=== PATIENT | female | born 1965 | race Caucasian/White ===

== ENCOUNTER 2016-08-29 16:10 | Emergency (ER) | payer MEDICARE, OTHER ==
[2016-08-29] MEDS ORDERED: NS 0.9% 1000 ML* 1,000 ML IV ONE (18:30)
[2016-08-29] MEDS ORDERED: Acetaminophen TAB* 325 MG PO ONE (18:32)
[2016-08-29 19:25] LABS: Albumin 3.9 g/dL (3.2-5.2); BUN/Creatinine Ratio 13.2 (8-20); EGFR African American 155.2 (>60); EGFR Non-African American 120.7 (>60); Globulin 3.1 g/dL (2-4); Potassium 3.6 mmol/L (3.5-5.0); Total Bilirubin 0.5 mg/dL (0.2-1.0)
[2016-08-29 19:27] LABS: Mono Internal Control QC Line Present
[2016-08-29 19:28] LABS: Manual Entry Verification CAR0052
--- NOTE | 2016-08-29 20:27 | ED ---
Throat Pain/Nasal Congestion - HPI Summary HPI Summary: Pt here w/ ST x 1 week. Dysphagia today which lead to her not drinking much water today and hasn't had much to eat either. She is able to breath w/o difficulty but reports a chronic cough d/t possible asthma. Has been using Flovent along with her albuterol. Rinses mouth after each use. H/o strep, no known h/o mono. Works on a school bus. Not sure if imms are UTD. Also admits to poor compliance w/ diabetic medications - takes metformin and glimeperide but has not been using victoza as she was dx'd w/ pancreatitis a few months back and fears this triggered it. She knows her diabetes is best controlled w/ proper diet (lost 40 lbs in 4 months w/ the "Wheat Belly Diet" but "fell off the wagon" when he puppy got sick). Feels run down in general. Denies rinorrhea , otalgia, sneezing, sinus pain/pressure, rash, ab pain, N/V/D, neck pain. - History of Current Complaint Chief Complaint: EDThroatPain Time Seen by Provider: 08/29/16 17:41 Hx Obtained From: Patient - Allergies/Home Medications Allergies/Adverse Reactions: Allergies Allergy/AdvReac Type Severity Reaction Status Date / Time No Known Allergies Allergy Verified 08/29/16 16:11 PMH/Surg Hx/FS Hx/Imm Hx Previously Healthy: Yes Endocrine/Hematology History: Reports: Hx Diabetes - oral medications Respiratory History: Reports: Hx Asthma - ? Infectious Disease History: No Infectious Disease History: Denies: Traveled Outside the [place] in Last 30 Days - Social History Lives: With Family Alcohol Use: None Hx Substance Use: No Substance Use Type: Reports: None Hx Tobacco Use: No Smoking Status (MU): Never Smoked Tobacco Review of Systems Positive: Fever - low grade Eyes: Negative Negative: Photophobia, Blurred Vision, Diplopia, Drainage, Erythema Positive: Sore Throat - see HPi. Negative: Dental Pain, Ear Ache, Nasal Discharge Cardiovascular: Other - tachycardic - she reports this happens when she eats poorly - has trend from records over the years - PCP is not concerned Negative: Palpitations, Chest Pain Gastrointestinal: Negative Positive: no symptoms reported Musculoskeletal: Negative Skin: Negative Neurological: Negative Psychological: Normal All Other Systems Reviewed And Are Negative: Yes Physical Exam Triage Information Reviewed: Yes Vital Signs On Initial Exam: Initial Vitals Temp Pulse Resp BP Pulse Ox 99.2 F 111 18 167/90 97 08/29/16 16:11 08/29/16 16:11 08/29/16 16:11 08/29/16 16:11 08/29/16 16:11 Vital Signs Reviewed: Yes Appearance: Positive: No Pain Distress, Obese - Appears mildly fatigued Skin: Positive: Warm, Dry - no rash Head/Face: Positive: Normal Head/Face Inspection - sinuses NTTP Eyes: Positive: Normal, EOMI. Negative: Conjunctiva Inflammed, Discharge ENT: Positive: Hearing grossly normal, Pharyngeal erythema - mild erytema over uvula and soft palate w/ satellite spots - no buck white spots/coating, TMs normal. Negative: Nasal congestion, Nasal drainage, Tonsillar swelling, Tonsillar exudate Neck: Positive: Supple, Nontender, No Lymphadenopathy Respiratory/Lung Sounds: Positive: Clear to Auscultation, Breath Sounds Present. Negative: Rales, Rhonchi, Stridor, Wheezes Cardiovascular: Positive: Tachycardia - mild, S1, S2. Negative: Leg Edema Left , Leg Edema Right Abdomen Description: Positive: Nontender, No Organomegaly, Soft Bowel Sounds: Positive: Present Musculoskeletal: Positive: Normal, Strength/ROM Intact Neurological: Positive: Normal, Sensory/Motor Intact, Alert, Oriented to Person Place, Time, CN Intact II-III Psychiatric: Positive: Normal - Jared Coma Scale Coma Scale Total: 15 Diagnostics - Vital Signs Vital Signs Temp Pulse Resp BP Pulse Ox 08/29/16 19:02 97.9 F 110 19 157/85 97 08/29/16 16:11 99.2 F 111 18 167/90 97 - Laboratory Lab Results: Lab Results 08/29/16 08/29/16 08/29/16 Range/Units 17:19 18:55 18:55 Sodium 134 (133-145) mmol/L Potassium 3.6 (3.5-5.0) mmol/L Chloride 101 (101-111) mmol/L Carbon Dioxide 24 (22-32) mmol/L Anion Gap 9 (2-11) mmol/L BUN 7 (6-24) mg/dL Creatinine 0.53 (0.51-0.95) mg/dL Est GFR ( Amer) 155.2 (>60) Est GFR (Non-Af Amer) 120.7 (>60) BUN/Creatinine Ratio 13.2 (8-20) Glucose 163 H (70-100) mg/dL Calcium 9.0 (8.6-10.3) mg/dL Total Bilirubin 0.50 (0.2-1.0) mg/dL AST 15 (13-39) U/L ALT 16 (7-52) U/L Alkaline Phosphatase 79 (34-104) U/L Total Protein 7.0 (6.4-8.9) g/dL Albumin 3.9 (3.2-5.2) g/dL Globulin 3.1 (2-4) g/dL Albumin/Globulin Ratio 1.3 (1-3) Monoscreen Negative (Negative) Group A Strep Rapid Negative (Negative) Result Diagrams: 08/29/16 18:55 Lab Statement: Any lab studies that have been ordered have been reviewed, and results considered in the medical decision making process. Re-Evaluation - Re-Evaluation First Eval Change: Improved - throat pain improved s/p acetaminophen EENT Course/Dx - Course Course Of Treatment: Discussion w/ pt about controlling diabetes w/ lifetsyle - she plans to return to "Wheat Belly Diet" and discuss w/ endocrinology as well as asthma w/ PCP re: flovent. Reviewed danger s/sx of when to return to ED. Pt agrees w/ plan. - Diagnoses Provider Diagnoses: Thrush, oral Discharge - Discharge Plan Condition: Stable Disposition: HOME Prescriptions: Clotrimazole HAMZAH* [Mycelex Hamzah*] 10 mg PO SEE INSTRUCTIONS #70 hamzah Patient Education Materials: Oral Candidiasis (ED) Referrals: No Primary Care Phys,NOPCP [Primary Care Provider] - Additional Instructions: Follow-up with aligning inspector Wednesday to recheck throat and discuss adjusting diabetic medications. You also voice committment to lifestyle changes to address diabetes which is a great idea! Also, follow-up with PCP regarding your asthma diagnosis as Flovent may have triggered this infection. *If you develop fever, chills, trouble swallowing or breathing, return to ED
[2016-08-29 21:19] VITALS: BP 153/78
== END 2016-08-29 21:19 | disposition home or self-care (01) ==
LOC: ED 16:10
DX: B37.0 Candidal stomatitis (principal); R13.10 Dysphagia, unspecified; H53.149 Visual discomfort, unspecified; H53.8 Other visual disturbances; H53.2 Diplopia
CPT/HCPCS: 36415; 80053; 86308; 87651; 99282; A9270-GY

== ENCOUNTER 2016-12-31 09:58 | Inpatient (IN) | payer MEDICARE ==
[2016-12-31] MEDS ORDERED: methylPREDNISolone 125 MG* 2 ML VIAL IV ONE (10:14)
[2016-12-31] MEDS ORDERED: NS 0.9% 1000 ML* 1,000 ML IV ONE (10:14)
[2016-12-31 10:46] LABS: Hematocrit 38 % (35-47); Hemoglobin 12.8 g/dl (12.0-16.0); Mean Corpuscular HGB Conc 33 g/dl (31-36); Mean Corpuscular Hemoglobin 27 pg (27-31); Mean Corpuscular Volume 81 fL (80-97); Mean Platelet Volume 8 um3 (7.4-10.4); Red Blood Count 4.74 10^6/ul (4.0-5.4); Red Cell Distribution Width 15 % (10.5-15); White Blood Count 13.1 10^3/ul (3.5-10.8)
--- NOTE | 2016-12-31 10:58 | RAD ---
Indication: Shortness of breath. 2 views of the chest demonstrate no mediastinal shift. Heart is of normal size and configuration. Lung parker are clear. No pleural fluid, pneumonia or pneumothorax is noted. IMPRESSION: No active cardiopulmonary disease is noted.
[2016-12-31 11:01] LABS: BUN/Creatinine Ratio 21.7 (8-20); C Reactive Protein 18.52 mg/L (< 5.00); EGFR African American 114.5 (>60); Globulin 3.2 g/dL (2-4); Potassium 3.7 mmol/L (3.5-5.0); Total Bilirubin 0.4 mg/dL (0.2-1.0); Total Protein 7.2 g/dL (6.4-8.9)
[2016-12-31] MEDS: Albuterol/Ipratropium NEB.SOL* Albuterol 2.5 MG/Ipratropium 0.5 MG 3 ML INH SCH ×4 (11:02→19:56)
[2016-12-31 11:15] LABS: PCO2 Arterial 37 mmHg (35-45)
[2016-12-31] MEDS ORDERED: Albuterol/Ipratropium NEB.SOL* Albuterol 2.5 MG/Ipratropium 0.5 MG 3 ML INH ONE (12:45)
[2016-12-31] MEDS ORDERED: Omeprazole CAP* 20 MG PO ONE (14:08)
[2016-12-31] MEDS ORDERED: Dextrose 50% Syringe 50 ML* 25 GM/50 ML SYRINGE IV PUSH PRN (14:46)
[2016-12-31] MEDS ORDERED: Temazepam CAP* 15 MG PO PRN (14:47)
[2016-12-31] MEDS ORDERED: Acetaminophen TAB* 325 MG PO PRN (14:47)
[2016-12-31] MEDS ORDERED: Insulin GLARGINE(*) 1 UNITS UNIT SUBCUT SCH (15:00)
--- NOTE | 2016-12-31 17:39 | HP ---
CC: Betty Kasper MD * HISTORY AND PHYSICAL: DATE OF ADMISSION: 12/31/16 PRIMARY CARE PROVIDER: Betty Kasper MD CHIEF COMPLAINT: Shortness of breath and wheezing. HISTORY OF PRESENT ILLNESS: Marbella Mckenzie is a 51-year-old female with a history of, she stated possibly COPD versus asthma, who presented to the hospital complaining of shortness of breath and wheezing. The patient stated that for the past 3 weeks ever since she cleaned her house and removed a lot of dust, she started having problems with cough, sputum production, and wheezing. Initially, she was placed on levofloxacin and Solu-Medrol taper and the symptoms resolved after 10 days of treatment and then they recurred 5 days later. For the past 4 days, she had been prednisone at 30 mg daily and doxycycline 100 mg daily. She presented to the hospital hypoxemic with oxygen saturation of 88% on room air. She is going to be admitted to the hospital with the diagnoses of hypoxemia and COPD exacerbation. PAST MEDICAL HISTORY: 1. History of hypertension. 2. Diabetes. 3. History of asthma and allergies. 4. History of depression. 5. History of . 6. History of benign cyst in the ankle, removed. 7. Carpal tunnel release. 8. Tonsillectomy. 9. Possible COPD. MEDICATIONS: Current medications include: 1. Prednisone 30 mg daily. 2. Doxycycline 100 mg daily. 3. Metformin 1000 mg b.i.d. 4. Glimepiride 4 mg b.i.d. 5. Lisinopril 10 mg daily. 6. Duloxetine 60 mg daily. ALLERGIES: No known drug allergies. FAMILY HISTORY: Positive for mother who with history of COPD, but of "old age." Father's reason of is unknown. SOCIAL HISTORY: The patient denies any alcohol use. She stated that she smoked 10- pack years and she quit over 10 years ago. She denies any drug use. She is in disability due to depression and drives school bus part-time. She lives with her disabled daughter and she is unable to name a surrogate at this point. REVIEW OF SYSTEMS: Please see history of present illness. On the patient's evaluation, the patient stated that her sputum is slightly improved on levofloxacin treatment and now is more purulent again. All the remaining 14 systems were reviewed with the patient and are otherwise negative. PHYSICAL EXAMINATION GENERAL: The patient is a pleasant 51-year-old obese female who is in no acute distress. Alert, awake, oriented x3. VITAL SIGNS: Blood pressure 128/78, heart rate of 106 and regular, respiratory rate 25, oxygen saturation 98% on 2 L of oxygen nasal cannula, and temperature 97.6. HEENT: Head: Atraumatic, normocephalic. Eyes: Pupils are equal, reactive to light and accommodation. Oropharynx clear. Mucosa moist. NECK: Supple. No JVD. No bruits bilaterally. RESPIRATORY: Diffuse wheezes with prolonged expiratory phase in anterior bilateral lungs. CARDIOVASCULAR: Regular rate and rhythm, tachycardia, no murmur. ABDOMEN: Soft, nontender. Bowel sounds present in all 4 quadrants. EXTREMITIES: There is no edema. Pulses are +2 bilaterally. No clubbing or cyanosis. NEUROLOGIC: Speech clear. Cranial nerves II through XII grossly intact. Motor strength is 5/5 bilaterally. DIAGNOSTIC STUDIES/LAB DATA: Laboratory data showed sodium of 130, potassium 3.7, chloride 97, carbon dioxide 24, BUN 15, creatinine 0.69. Liver functions were unremarkable. C-reactive protein of 18. Lactic acid is 3.4. Brain natriuretic peptide was 24. CBC, white blood cell count of 13.1, hemoglobin 12.8, hematocrit of 38, and platelets of 302. Influenza A and B negative. ABG shows pH of 7.42, pCO2 of 37, pO2 of 68, bicarb of 24. Portable chest x-ray, impression "no active cardiopulmonary disease." ASSESSMENT AND PLAN: 1. The patient is in chronic obstructive pulmonary disease/asthma exacerbation. I believe she was never formally diagnosed with COPD. She is going to be placed on Solu-Medrol intravenously and continued on doxycycline. We will order sputum cultures to guide further treatment. The patient is also going to be placed on DuoNeb on a scheduled basis. 2. In regards to the patient's diabetes, the patient is going to be placed on insulin sliding scale and her oral hypoglycemics are going to be held for the time being. 3. For hypertension, lisinopril is going to be continued. 4. For depression, the patient's Cymbalta is going to be continued. 5. Due to the patient's sugars being over 300 on presentation, the patient is going to be placed on insulin Lantus. 6. The patient's hyponatremia and lactic acid are most likely due to mild dehydration. Lactic acid elevation probably also added to the patient's hypoxia. I do not believe the patient at this point will require another blood stick to have the lactic acid result. Nevertheless, we will confirm with lactic acid level in the morning. The patient already received a liter of intravenous fluids in the emergency department and more fluids will not be instituted for the time being. 7. For DVT prophylaxis, the patient is going to be fully ambulatory and is at low risk. 8. Code status: The patient's code status is full and she is unable to name a surrogate at this point. She basically states that she does not have anyone who she would like to entrust . TIME SPENT: Approximately 65 minutes were spent on admission of this patient, more than half of the time was spent [id number] with the patient doing the interview and physical exam. [id number]/CPS #: [id number] GARRET
[2016-12-31 18:16] LABS: Urine Bacteria Absent (Absent); Urine Bilirubin Negative (Negative); Urine Glucose 3+(>=500 mg/dL) (Negative); Urine Nitrite Negative (Negative)
[2016-12-31] MEDS ORDERED: Insulin LISPRO* 1 UNITS UNIT SUBCUT ONE ×2 (19:28→21:39)
[2016-12-31] MEDS: Insulin LISPRO* 1 UNITS UNIT SUBCUT SCH ×2 (19:30→21:51)
[2016-12-31] MEDS: methylPREDNISolone SOD 40 MG* 1 ML VIAL IV SCH (20:37)
[2016-12-31] MEDS: DOXYcycline CAP(*) 100 MG PO SCH (20:37)
[2017-01-01] MEDS: Albuterol/Ipratropium NEB.SOL* Albuterol 2.5 MG/Ipratropium 0.5 MG 3 ML INH SCH ×4 (00:57→19:20)
[2017-01-01] MEDS: methylPREDNISolone SOD 40 MG* 1 ML VIAL IV SCH ×3 (05:08→20:04)
[2017-01-01] MEDS: Insulin LISPRO* 1 UNITS UNIT SUBCUT SCH ×6 (05:11→20:41)
[2017-01-01 06:16] LABS: Hematocrit 36 % (35-47); Hemoglobin 11.7 g/dl (12.0-16.0); Mean Corpuscular HGB Conc 33 g/dl (31-36); Mean Corpuscular Hemoglobin 27 pg (27-31); Mean Corpuscular Volume 81 fL (80-97); Mean Platelet Volume 8 um3 (7.4-10.4); Red Blood Count 4.36 10^6/ul (4.0-5.4); Red Cell Distribution Width 15 % (10.5-15); White Blood Count 13.3 10^3/ul (3.5-10.8)
[2017-01-01 06:30] LABS: BUN/Creatinine Ratio 21.3 (8-20); Calcium 8.9 mg/dL (8.6-10.3); EGFR African American 131.9 (>60); EGFR Non-African American 102.6 (>60)
--- NOTE | 2017-01-01 08:15 | ED ---
Alice Torres Alfonso scribed for Christos Briceno MD on 12/31/16 at 1044 . Shortness of Breath - HPI Summary HPI Summary: This patient is a 51 year old F presenting to [facility] with a chief complaint of SOB since 3 weeks ago. The patient rates the pain 6/10 in severity. Symptoms aggravated by nothing. Symptoms alleviated by nothing. Patient reports cough. - History of Current Complaint Chief Complaint: EDShortnessOfBreath Time Seen by Provider: 12/31/16 10:08 Hx Obtained From: Patient Onset/Duration: Gradual Onset, Lasting Weeks - 3, Still Present Timing: Constant Aggrevating Factors: Nothing Alleviating Factors: Nothing Associated Signs & Symptoms: Cough (Nonproductive) - Allergy/Home Medications Allergies/Adverse Reactions: Allergies Allergy/AdvReac Type Severity Reaction Status Date / Time No Known Allergies Allergy Verified 08/29/16 16:11 Home Medications: Home Medications DOXYcycline CAP(*) [DOXYcycline 100MG CAP(*)] 100 mg PO DAILY 12/31/16 [History Confirmed 12/31/16] DULoxetine DR CAP* [Cymbalta CAP*] 60 mg PO DAILY 12/31/16 [History Confirmed ] Glimepiride (NF) 4 mg PO BID 12/31/16 [History Confirmed 12/31/16] Lisinopril TAB* [Prinivil TAB*] 10 mg PO DAILY 12/31/16 [History Confirmed 12/31] metFORMIN* [Glucophage 500 MG TAB *] 1,000 mg PO BID 12/31/16 [History Confirmed 12/31/16] predniSONE TAB* [Deltasone TAB*] 20 mg PO DAILY 12/31/16 [History Confirmed 03/07] PMH/Surg Hx/FS Hx/Imm Hx Endocrine/Hematology History: Reports: Hx Diabetes - oral medications Respiratory History: Reports: Hx Asthma - ? Opthamlomology History: Denies: Hx Legally Blind EENT History: Denies: Hx Deafness Infectious Disease History: No Infectious Disease History: Denies: Traveled Outside the [place] in Last 30 Days - Family History Known Family History: Positive: Other - Asthma - Social History Alcohol Use: None Hx Substance Use: No Substance Use Type: Reports: None Hx Tobacco Use: No Smoking Status (MU): Never Smoked Tobacco Review of Systems Negative: Fever Positive: Shortness Of Breath, Cough All Other Systems Reviewed And Are Negative: Yes Physical Exam - Summary Physical Exam Summary: VITAL SIGNS: Reviewed. GENERAL: Patient is a well-developed and nourished female who is lying comfortable in the stretcher. Patient is not in any acute respiratory distress. HEAD AND FACE: No signs of trauma. No ecchymosis, hematomas or skull depressions. No sinus tenderness. EYES: PERRLA, EOMI x 2, No injected conjunctiva, no nystagmus. EARS: Hearing grossly intact. Ear canals and tympanic membranes are within normal limits. MOUTH: Oropharynx within normal limits. NECK: Supple, trachea is midline, no adenopathy, no JVD, no carotid bruit, no c- spine tenderness, neck with full ROM. CHEST: Symmetric, no tenderness at palpation LUNGS: Decreased breath sounds bilaterally. Crackles and wheezing bilaterally. CVS: Regular rate and rhythm, S1 and S2 present, no murmurs or gallops appreciated. ABDOMEN: Soft, non-tender. No signs of distention. No rebound no guarding, and no masses palpated. Bowel sounds are normal. EXTREMITIES: FROM in all major joints, no edema, no cyanosis or clubbing. NEURO: Alert and oriented x 3. No acute neurological deficits. Speech is normal and follows commands. SKIN: Dry and warm Triage Information Reviewed: Yes Vital Signs On Initial Exam: Initial Vitals Temp Pulse Resp BP Pulse Ox 97.6 F 120 28 156/86 96 12/31/16 09:59 12/31/16 09:59 12/31/16 09:59 12/31/16 09:59 12/31/16 09:59 Vital Signs Reviewed: Yes Diagnostics - Vital Signs Vital Signs Temp Pulse Resp BP Pulse Ox 12/31/16 09:59 97.6 F 120 28 156/86 96 - Laboratory Lab Results: Lab Results 12/31/16 12/31/16 12/31/16 Range/Units 10:28 10:28 10:28 WBC 13.1 H (3.5-10.8) 10^3/ul RBC 4.74 (4.0-5.4) 10^6/ul Hgb 12.8 (12.0-16.0) g/dl Hct 38 (35-47) % MCV 81 (80-97) fL MCH 27 (27-31) pg MCHC 33 (31-36) g/dl RDW 15 (10.5-15) % Plt Count 302 (150-450) 10^3/ul MPV 8 (7.4-10.4) um3 Neut % (Auto) 75.7 (38-83) % Lymph % (Auto) 18.4 L (25-47) % Phelps % (Auto) 5.0 (1-9) % Eos % (Auto) 0.3 (0-6) % Baso % (Auto) 0.6 (0-2) % Absolute Neuts (auto) 9.9 H (1.5-7.7) 10^3/ul Absolute Lymphs (auto) 2.4 (1.0-4.8) 10^3/ul Absolute Monos (auto) 0.7 (0-0.8) 10^3/ul Absolute Eos (auto) 0 (0-0.6) 10^3/ul Absolute Basos (auto) 0.1 (0-0.2) 10^3/ul Absolute Nucleated RBC 0.01 10^3/ul Nucleated RBC % 0 ABG pH (7.35-7.45) ABG pCO2 (35-45) mmHg ABG pO2 (80-100) mmHg ABG HCO3 (19-31) mmol/L ABG O2 Saturation (95-98) % ABG Base Excess (-2.0-2.0) Sodium 130 L (133-145) mmol/L Potassium 3.7 (3.5-5.0) mmol/L Chloride 97 L (101-111) mmol/L Carbon Dioxide 24 (22-32) mmol/L Anion Gap 9 (2-11) mmol/L BUN 15 (6-24) mg/dL Creatinine 0.69 (0.51-0.95) mg/dL Est GFR ( Amer) 114.5 (>60) Est GFR (Non-Af Amer) 89.0 (>60) BUN/Creatinine Ratio 21.7 H (8-20) Glucose 307 H (70-100) mg/dL Hemoglobin A1c (4.0-5.6) % Lactic Acid 3.4 H* (0.5-2.0) mmol/L Calcium 10.0 (8.6-10.3) mg/dL Total Bilirubin 0.40 (0.2-1.0) mg/dL AST 14 (13-39) U/L ALT 24 (7-52) U/L Alkaline Phosphatase 88 (34-104) U/L Total Creatine Kinase 63 (10-223) U/L CK-MB (CK-2) 1.8 (0.6-6.3) ng/mL Troponin I 0.00 (<0.04) ng/mL C-Reactive Protein 18.52 H (< 5.00) mg/L B-Natriuretic Peptide ( - 100) pg/mL Total Protein 7.2 (6.4-8.9) g/dL Albumin 4.0 (3.2-5.2) g/dL Globulin 3.2 (2-4) g/dL Albumin/Globulin Ratio 1.3 (1-3) Influenza A (Rapid) (Negative) Influenza B (Rapid) (Negative) 12/31/16 12/31/16 12/31/16 Range/Units 10:28 10:28 11:01 WBC (3.5-10.8) 10^3/ul RBC (4.0-5.4) 10^6/ul Hgb (12.0-16.0) g/dl Hct (35-47) % MCV (80-97) fL MCH (27-31) pg MCHC (31-36) g/dl RDW (10.5-15) % Plt Count (150-450) 10^3/ul MPV (7.4-10.4) um3 Neut % (Auto) (38-83) % Lymph % (Auto) (25-47) % Phelps % (Auto) (1-9) % Eos % (Auto) (0-6) % Baso % (Auto) (0-2) % Absolute Neuts (auto) (1.5-7.7) 10^3/ul Absolute Lymphs (auto) (1.0-4.8) 10^3/ul Absolute Monos (auto) (0-0.8) 10^3/ul Absolute Eos (auto) (0-0.6) 10^3/ul Absolute Basos (auto) (0-0.2) 10^3/ul Absolute Nucleated RBC 10^3/ul Nucleated RBC % ABG pH (7.35-7.45) ABG pCO2 (35-45) mmHg ABG pO2 (80-100) mmHg ABG HCO3 (19-31) mmol/L ABG O2 Saturation (95-98) % ABG Base Excess (-2.0-2.0) Sodium (133-145) mmol/L Potassium (3.5-5.0) mmol/L Chloride (101-111) mmol/L Carbon Dioxide (22-32) mmol/L Anion Gap (2-11) mmol/L BUN (6-24) mg/dL Creatinine (0.51-0.95) mg/dL Est GFR ( Amer) (>60) Est GFR (Non-Af Amer) (>60) BUN/Creatinine Ratio (8-20) Glucose (70-100) mg/dL Hemoglobin A1c 9.9 H (4.0-5.6) % Lactic Acid (0.5-2.0) mmol/L Calcium (8.6-10.3) mg/dL Total Bilirubin (0.2-1.0) mg/dL AST (13-39) U/L ALT (7-52) U/L Alkaline Phosphatase (34-104) U/L Total Creatine Kinase (10-223) U/L CK-MB (CK-2) (0.6-6.3) ng/mL Troponin I (<0.04) ng/mL C-Reactive Protein (< 5.00) mg/L B-Natriuretic Peptide 24 ( - 100) pg/mL Total Protein (6.4-8.9) g/dL Albumin (3.2-5.2) g/dL Globulin (2-4) g/dL Albumin/Globulin Ratio (1-3) Influenza A (Rapid) Negative (Negative) Influenza B (Rapid) Negative (Negative) 12/31/16 Range/Units 11:05 WBC (3.5-10.8) 10^3/ul RBC (4.0-5.4) 10^6/ul Hgb (12.0-16.0) g/dl Hct (35-47) % MCV (80-97) fL MCH (27-31) pg MCHC (31-36) g/dl RDW (10.5-15) % Plt Count (150-450) 10^3/ul MPV (7.4-10.4) um3 Neut % (Auto) (38-83) % Lymph % (Auto) (25-47) % Phelps % (Auto) (1-9) % Eos % (Auto) (0-6) % Baso % (Auto) (0-2) % Absolute Neuts (auto) (1.5-7.7) 10^3/ul Absolute Lymphs (auto) (1.0-4.8) 10^3/ul Absolute Monos (auto) (0-0.8) 10^3/ul Absolute Eos (auto) (0-0.6) 10^3/ul Absolute Basos (auto) (0-0.2) 10^3/ul Absolute Nucleated RBC 10^3/ul Nucleated RBC % ABG pH 7.42 (7.35-7.45) ABG pCO2 37 (35-45) mmHg ABG pO2 68 L (80-100) mmHg ABG HCO3 24.7 (19-31) mmol/L ABG O2 Saturation 96.5 (95-98) % ABG Base Excess -0.2 (-2.0-2.0) Sodium (133-145) mmol/L Potassium (3.5-5.0) mmol/L Chloride (101-111) mmol/L Carbon Dioxide (22-32) mmol/L Anion Gap (2-11) mmol/L BUN (6-24) mg/dL Creatinine (0.51-0.95) mg/dL Est GFR ( Amer) (>60) Est GFR (Non-Af Amer) (>60) BUN/Creatinine Ratio (8-20) Glucose (70-100) mg/dL Hemoglobin A1c (4.0-5.6) % Lactic Acid (0.5-2.0) mmol/L Calcium (8.6-10.3) mg/dL Total Bilirubin (0.2-1.0) mg/dL AST (13-39) U/L ALT (7-52) U/L Alkaline Phosphatase (34-104) U/L Total Creatine Kinase (10-223) U/L CK-MB (CK-2) (0.6-6.3) ng/mL Troponin I (<0.04) ng/mL C-Reactive Protein (< 5.00) mg/L B-Natriuretic Peptide ( - 100) pg/mL Total Protein (6.4-8.9) g/dL Albumin (3.2-5.2) g/dL Globulin (2-4) g/dL Albumin/Globulin Ratio (1-3) Influenza A (Rapid) (Negative) Influenza B (Rapid) (Negative) Result Diagrams: 01/01/17 06:05 01/01/17 06:05 Lab Statement: Any lab studies that have been ordered have been reviewed, and results considered in the medical decision making process. - Radiology CXR Radiology Interpretation Completed By: Radiologist - No active cardiopulmonary disease is noted. ED physician has reviewed this radiology report and agrees. - EKG 1041 Cardiac Rate: NL - BPM 94 EKG Rhythm: Sinus Rhythm EKG Interpretation: No ST elevation. Normal axis. Course/Dx - Course Assessment/Plan: This patient is a 51 year old F presenting to [facility] with a chief complaint of SOB since 3 weeks ago. The patient rates the pain 6/10 in severity. Symptoms aggravated by nothing. Symptoms alleviated by nothing. Patient reports cough. An EKG reveals NSR. CXR reveals No active cardiopulmonary disease is noted. ED physician has reviewed this radiology report and agrees. Test results shows a WBC of 13.1, sodium of 130, glucose 307 , lactic acid of 3.4, and CRP of 18.5. Influenza A and B negative. In the ED course the patient was given multiple Duoneb and solu-medrol. However after the treatment the patient desaturates without oxygen to 90-92 and with oxygen she saturates at 95-95. Therefore I consulted Dr. Bonilla who accept the patient for admission. The patient is agreeable with this plan. The patient is hemodynamically stable and alert and oriented x3. - Diagnoses Differential Diagnosis/HQI/PQRI: Positive: Asthma, Bronchitis, CHF, Chest Wall Pain, COPD Exacerbation, Pneumonia Provider Diagnoses: COPD exacerbation, Asthma exacerbation - Physician Notifications Discussed Care of Patient With: Hilda Bonilla Time Discussed With Above Provider: 13:02 Instructed by Provider To: Other - Consulted Dr. Bonilla (hospitalist) at 1302 who agrees to admit. Discharge - Discharge Plan Condition: Stable Disposition: ADMITTED TO [facility] The documentation as recorded by the Alice zepeda Alfonso accurately reflects the service I personally performed and the decisions made by me, Christos Briceno MD.
[2017-01-01] MEDS: Lisinopril TAB* 10 MG PO SCH (08:51)
[2017-01-01] MEDS: DOXYcycline CAP(*) 100 MG PO SCH ×2 (08:51→20:41)
[2017-01-01] MEDS: glyBURIDE TAB* 5 MG PO SCH ×2 (08:52→20:41)
[2017-01-01] MEDS: DULoxetine DR CAP* 60 MG CAP.DR PO SCH (08:52)
--- NOTE | 2017-01-01 12:16 | PN ---
Subjective Date of Service: 01/01/17 Interval History: Pt feels better, off 02, but still wheezing and coughing sugars have been uncontrolled since IV steroids were started Objective Active Medications: Acetaminophen (Tylenol Tab*) 650 mg PO Q4H PRN PRN Reason: FEVER/PAIN Albuterol/Ipratropium (Duoneb (Albuterol 2.5 Mg/Ipratropium 0.5 Mg)) 1 neb INH [id number] AWAKE [facility] Last Admin: 01/01/17 07:12 Dose: 1 neb Dextrose (D50w Syringe 50 Ml*) 12.5 gm IV PUSH .FOR FS < 60 - SS PRN PRN Reason: FS < 60 Doxycycline Hyclate (Vibramycin Cap(*)) 100 mg PO BID [facility] Last Admin: 01/01/17 08:51 Dose: 100 mg Duloxetine HCl (Cymbalta Cap*) 60 mg PO DAILY [facility] Last Admin: 01/01/17 08:52 Dose: 60 mg Glyburide (Diabeta Tab*) 5 mg PO BID [facility] Last Admin: 01/01/17 08:52 Dose: 5 mg Insulin Glargine (Lantus(*)) 20 units SUBCUT Q24H [facility] Insulin Human Lispro (Humalog*) 0 units SUBCUT ACHS [facility] PRN Reason: Protocol Last Admin: 01/01/17 08:50 Dose: 8 units Lisinopril (Prinivil Tab*) 10 mg PO DAILY [facility] Last Admin: 01/01/17 08:51 Dose: 10 mg Methylprednisolone Sodium Succinate (Solu-Medrol 40 Mg) 40 mg IV Q8H [facility] Last Admin: 01/01/17 05:08 Dose: 40 mg Temazepam (Restoril Cap*) 15 mg PO BEDTIME PRN PRN Reason: INSOMNIA Oxygen Devices in Use Now: None Appearance: 51 yo F in nAD, AAOx3 Eyes: No Scleral Icterus, PERRLA Ears/Nose/Mouth/Throat: NL Teeth, Lips, Gums, Mucous Membranes Moist Neck: NL Appearance and Movements; NL JVP, Trachea Midline Respiratory: Symmetrical Chest Expansion and Respiratory Effort, - - diffuse coarse wheezes b/l Cardiovascular: NL Sounds; No Murmurs; No JVD, RRR Abdominal: NL Sounds; No Tenderness; No Distention Lymphatic: No Cervical Adenopathy Extremities: No Edema, No Clubbing, Cyanosis Skin: No Rash or Ulcers, No Nodules or Sclerosis Neurological: Alert and Oriented x 3, NL Muscle Strength and Tone Result Diagrams: 01/01/17 06:05 01/01/17 06:05 Additional Lab and Data: Lab Results 12/31/16 12/31/16 12/31/16 Range/Units 10:28 10:28 10:28 WBC 13.1 H (3.5-10.8) 10^3/ul RBC 4.74 (4.0-5.4) 10^6/ul Hgb 12.8 (12.0-16.0) g/dl Hct 38 (35-47) % MCV 81 (80-97) fL MCH 27 (27-31) pg MCHC 33 (31-36) g/dl RDW 15 (10.5-15) % Plt Count 302 (150-450) 10^3/ul MPV 8 (7.4-10.4) um3 Neut % (Auto) 75.7 (38-83) % Lymph % (Auto) 18.4 L (25-47) % [place] % (Auto) 5.0 (1-9) % Eos % (Auto) 0.3 (0-6) % Baso % (Auto) 0.6 (0-2) % Absolute Neuts (auto) 9.9 H (1.5-7.7) 10^3/ul Absolute Lymphs (auto) 2.4 (1.0-4.8) 10^3/ul Absolute Monos (auto) 0.7 (0-0.8) 10^3/ul Absolute Eos (auto) 0 (0-0.6) 10^3/ul Absolute Basos (auto) 0.1 (0-0.2) 10^3/ul Absolute Nucleated RBC 0.01 10^3/ul Nucleated RBC % 0 ABG pH (7.35-7.45) ABG pCO2 (35-45) mmHg ABG pO2 (80-100) mmHg ABG HCO3 (19-31) mmol/L ABG O2 Saturation (95-98) % ABG Base Excess (-2.0-2.0) Sodium 130 L (133-145) mmol/L Potassium 3.7 (3.5-5.0) mmol/L Chloride 97 L (101-111) mmol/L Carbon Dioxide 24 (22-32) mmol/L Anion Gap 9 (2-11) mmol/L BUN 15 (6-24) mg/dL Creatinine 0.69 (0.51-0.95) mg/dL Est GFR ( Amer) 114.5 (>60) Est GFR (Non-Af Amer) 89.0 (>60) BUN/Creatinine Ratio 21.7 H (8-20) Glucose 307 H (70-100) mg/dL Hemoglobin A1c (4.0-5.6) % Lactic Acid 3.4 H* (0.5-2.0) mmol/L Calcium 10.0 (8.6-10.3) mg/dL Total Bilirubin 0.40 (0.2-1.0) mg/dL AST 14 (13-39) U/L ALT 24 (7-52) U/L Alkaline Phosphatase 88 (34-104) U/L Total Creatine Kinase 63 (10-223) U/L CK-MB (CK-2) 1.8 (0.6-6.3) ng/mL Troponin I 0.00 (<0.04) ng/mL C-Reactive Protein 18.52 H (< 5.00) mg/L B-Natriuretic Peptide ( - 100) pg/mL Total Protein 7.2 (6.4-8.9) g/dL Albumin 4.0 (3.2-5.2) g/dL Globulin 3.2 (2-4) g/dL Albumin/Globulin Ratio 1.3 (1-3) Influenza A (Rapid) (Negative) Influenza B (Rapid) (Negative) 12/31/16 12/31/16 12/31/16 Range/Units 10:28 10:28 11:01 WBC (3.5-10.8) 10^3/ul RBC (4.0-5.4) 10^6/ul Hgb (12.0-16.0) g/dl Hct (35-47) % MCV (80-97) fL MCH (27-31) pg MCHC (31-36) g/dl RDW (10.5-15) % Plt Count (150-450) 10^3/ul MPV (7.4-10.4) um3 Neut % (Auto) (38-83) % Lymph % (Auto) (25-47) % [place] % (Auto) (1-9) % Eos % (Auto) (0-6) % Baso % (Auto) (0-2) % Absolute Neuts (auto) (1.5-7.7) 10^3/ul Absolute Lymphs (auto) (1.0-4.8) 10^3/ul Absolute Monos (auto) (0-0.8) 10^3/ul Absolute Eos (auto) (0-0.6) 10^3/ul Absolute Basos (auto) (0-0.2) 10^3/ul Absolute Nucleated RBC 10^3/ul Nucleated RBC % ABG pH (7.35-7.45) ABG pCO2 (35-45) mmHg ABG pO2 (80-100) mmHg ABG HCO3 (19-31) mmol/L ABG O2 Saturation (95-98) % ABG Base Excess (-2.0-2.0) Sodium (133-145) mmol/L Potassium (3.5-5.0) mmol/L Chloride (101-111) mmol/L Carbon Dioxide (22-32) mmol/L Anion Gap (2-11) mmol/L BUN (6-24) mg/dL Creatinine (0.51-0.95) mg/dL Est GFR ( Amer) (>60) Est GFR (Non-Af Amer) (>60) BUN/Creatinine Ratio (8-20) Glucose (70-100) mg/dL Hemoglobin A1c 9.9 H (4.0-5.6) % Lactic Acid (0.5-2.0) mmol/L Calcium (8.6-10.3) mg/dL Total Bilirubin (0.2-1.0) mg/dL AST (13-39) U/L ALT (7-52) U/L Alkaline Phosphatase (34-104) U/L Total Creatine Kinase (10-223) U/L CK-MB (CK-2) (0.6-6.3) ng/mL Troponin I (<0.04) ng/mL C-Reactive Protein (< 5.00) mg/L B-Natriuretic Peptide 24 ( - 100) pg/mL Total Protein (6.4-8.9) g/dL Albumin (3.2-5.2) g/dL Globulin (2-4) g/dL Albumin/Globulin Ratio (1-3) Influenza A (Rapid) Negative (Negative) Influenza B (Rapid) Negative (Negative) 12/31/16 Range/Units 11:05 WBC (3.5-10.8) 10^3/ul RBC (4.0-5.4) 10^6/ul Hgb (12.0-16.0) g/dl Hct (35-47) % MCV (80-97) fL MCH (27-31) pg MCHC (31-36) g/dl RDW (10.5-15) % Plt Count (150-450) 10^3/ul MPV (7.4-10.4) um3 Neut % (Auto) (38-83) % Lymph % (Auto) (25-47) % [place] % (Auto) (1-9) % Eos % (Auto) (0-6) % Baso % (Auto) (0-2) % Absolute Neuts (auto) (1.5-7.7) 10^3/ul Absolute Lymphs (auto) (1.0-4.8) 10^3/ul Absolute Monos (auto) (0-0.8) 10^3/ul Absolute Eos (auto) (0-0.6) 10^3/ul Absolute Basos (auto) (0-0.2) 10^3/ul Absolute Nucleated RBC 10^3/ul Nucleated RBC % ABG pH 7.42 (7.35-7.45) ABG pCO2 37 (35-45) mmHg ABG pO2 68 L (80-100) mmHg ABG HCO3 24.7 (19-31) mmol/L ABG O2 Saturation 96.5 (95-98) % ABG Base Excess -0.2 (-2.0-2.0) Sodium (133-145) mmol/L Potassium (3.5-5.0) mmol/L Chloride (101-111) mmol/L Carbon Dioxide (22-32) mmol/L Anion Gap (2-11) mmol/L BUN (6-24) mg/dL Creatinine (0.51-0.95) mg/dL Est GFR ( Amer) (>60) Est GFR (Non-Af Amer) (>60) BUN/Creatinine Ratio (8-20) Glucose (70-100) mg/dL Hemoglobin A1c (4.0-5.6) % Lactic Acid (0.5-2.0) mmol/L Calcium (8.6-10.3) mg/dL Total Bilirubin (0.2-1.0) mg/dL AST (13-39) U/L ALT (7-52) U/L Alkaline Phosphatase (34-104) U/L Total Creatine Kinase (10-223) U/L CK-MB (CK-2) (0.6-6.3) ng/mL Troponin I (<0.04) ng/mL C-Reactive Protein (< 5.00) mg/L B-Natriuretic Peptide ( - 100) pg/mL Total Protein (6.4-8.9) g/dL Albumin (3.2-5.2) g/dL Globulin (2-4) g/dL Albumin/Globulin Ratio (1-3) Influenza A (Rapid) (Negative) Influenza B (Rapid) (Negative) Assess/Plan/Problems-Billing Assessment: 51 yo F with h/o COPD/Asthma, DM, HTN with COPD/Asthma exacerbation - Patient Problems (1) COPD exacerbation Comment: cont scheduled nebs and Solu Medrol slightly improved today Cont outpatient doxy for purulent bronchitis will need another day of hospital stay (2) DM2 (diabetes mellitus, type 2) Comment: Uncontrolled due to IV steroids cont Lantus Starting glyburide(pt is on non formulary med-glimepride at home) Restarting metformin Cont ISS (3) HTN (hypertension) Comment: cont lisinopril, controlled Status and Disposition: OBV will be changed to inpatient
[2017-01-01] MEDS ORDERED: Acetaminop/Codeine 30 MG TAB* 1 TAB (300 MG/30 MG) PO PRN (12:20)
[2017-01-01] MEDS: Insulin GLARGINE(*) 1 UNITS UNIT SUBCUT SCH (12:41)
[2017-01-01] MEDS ORDERED: Insulin GLARGINE(*) 1 UNITS UNIT SUBCUT SCH (15:00)
[2017-01-01] MEDS ORDERED: Insulin GLARGINE(*) 1 UNITS UNIT SUBCUT ONE (18:05)
[2017-01-01] MEDS: metFORMIN* 500 MG TAB PO SCH (20:41)
[2017-01-02] MEDS: Albuterol/Ipratropium NEB.SOL* Albuterol 2.5 MG/Ipratropium 0.5 MG 3 ML INH SCH ×3 (00:54→15:02)
[2017-01-02] MEDS: methylPREDNISolone SOD 40 MG* 1 ML VIAL IV SCH (03:30)
--- NOTE | 2017-01-02 08:16 | PN ---
Subjective Date of Service: 01/02/17 Interval History: Patient seen this morning. Reports breathing is "75%" better than admission, still having significant coughing episodes. No fever or chills, cough is productive of yellow/green sputum. Family History: Unchanged from Admission Social History: Unchanged from Admission Past Medical History: Unchanged from Admission Objective Active Medications: Acetaminophen (Tylenol Tab*) 650 mg PO Q4H PRN Acetaminophen/Codeine Phosphate (Tylenol/Codeine 30 Mg Tab*) 1 tab PO Q6H PRN Albuterol/Ipratropium (Duoneb (Albuterol 2.5 Mg/Ipratropium 0.5 Mg)) 1 neb INH [id number] AWAKE [facility] Dextrose (D50w Syringe 50 Ml*) 12.5 gm IV PUSH .FOR FS < 60 - SS PRN Doxycycline Hyclate (Vibramycin Cap(*)) 100 mg PO BID [facility] Duloxetine HCl (Cymbalta Cap*) 60 mg PO DAILY [facility] Glyburide (Diabeta Tab*) 5 mg PO BID [facility] Insulin Glargine (Lantus(*)) 20 units SUBCUT Q24H [facility] Insulin Human Lispro (Humalog*) 0 units SUBCUT ACHS [facility] Lisinopril (Prinivil Tab*) 10 mg PO DAILY [facility] Metformin HCl (Glucophage*) 1,000 mg PO BID [facility] Methylprednisolone Sodium Succinate (Solu-Medrol 40 Mg) 40 mg IV Q8H [facility] Temazepam (Restoril Cap*) 15 mg PO BEDTIME PRN Vital Signs 01/01/17 01/01/17 01/01/17 12:18 13:26 15:15 Temperature 98.1 F 97.8 F Pulse Rate 107 110 115 Respiratory 20 18 20 Rate Blood Pressure 151/82 152/69 (mmHg) O2 Sat by Pulse 97 95 93 Oximetry 01/01/17 01/01/17 01/01/17 19:22 20:00 23:05 Temperature 97.5 F Pulse Rate 100 96 Respiratory 20 19 15 Rate Blood Pressure 131/63 (mmHg) O2 Sat by Pulse 99 95 Oximetry 01/02/17 03:28 Temperature 97.5 F Pulse Rate 89 Respiratory 14 Rate Blood Pressure 133/55 (mmHg) O2 Sat by Pulse 100 Oximetry Oxygen Devices in Use Now: None Appearance: Middle-aged, obese, F, laying in bed in NAD but with frequent coughing Eyes: No Scleral Icterus Ears/Nose/Mouth/Throat: Mucous Membranes Moist Neck: NL Appearance and Movements; NL JVP Respiratory: Symmetrical Chest Expansion and Respiratory Effort, Clear to Auscultation Cardiovascular: NL Sounds; No Murmurs; No JVD, RRR Abdominal: NL Sounds; No Tenderness; No Distention Lymphatic: No Cervical Adenopathy Extremities: No Edema Skin: No Rash or Ulcers Neurological: Alert and Oriented x 3 Result Diagrams: 01/01/17 06:05 01/01/17 06:05 Assess/Plan/Problems-Billing Assessment: 51 yo F with h/o COPD/Asthma, DM, HTN with COPD/Asthma exacerbation - Patient Problems (1) COPD exacerbation Current Visit: Yes Comment: Seems to be improving, will transition to PO prednisone. Cough seems to be predominant problem, will start tessalon Continue nebs for now Cont outpatient doxy for purulent bronchitis Plan to discharge today (2) DM2 (diabetes mellitus, type 2) Current Visit: Yes Status: Acute Comment: Uncontrolled due to IV steroids, should improve somewhat with decrease to prednisone dosing cont Lantus, glyburide(pt is on non formulary med-glimepride at home), metformin Cont ISS (3) HTN (hypertension) Current Visit: Yes Status: Acute Code(s): I10 - ESSENTIAL (PRIMARY) HYPERTENSION SNOMED Code(s): 28846780 Comment: cont lisinopril, controlled Status and Disposition: Plan to discharge later this morning once patient is ambulating
[2017-01-02] MEDS ORDERED: Benzonatate CAP* 100 MG PO PRN (08:21)
[2017-01-02 08:46] VITALS: BP 126/62
[2017-01-02] MEDS: Insulin LISPRO* 1 UNITS UNIT SUBCUT SCH ×2 (09:17→12:30)
[2017-01-02] MEDS: Lisinopril TAB* 10 MG PO SCH (09:18)
[2017-01-02] MEDS: DOXYcycline CAP(*) 100 MG PO SCH (09:18)
[2017-01-02] MEDS: glyBURIDE TAB* 5 MG PO SCH (09:18)
[2017-01-02] MEDS: metFORMIN* 500 MG TAB PO SCH (09:18)
[2017-01-02] MEDS: DULoxetine DR CAP* 60 MG CAP.DR PO SCH (09:19)
[2017-01-02] MEDS ORDERED: predniSONE TAB* 20 MG PO SCH (10:00)
[2017-01-02] MEDS: Insulin GLARGINE(*) 1 UNITS UNIT SUBCUT SCH (12:29)
--- NOTE | 2017-01-02 15:13 | DS ---
CC: Savanna Kasper MD. DISCHARGE SUMMARY: DATE OF ADMISSION: 12/31/16 DATE OF DISCHARGE: 01/02/17 PRIMARY CARE PHYSICIAN: Savanna Kasper MD. PRINCIPAL DISCHARGE DIAGNOSES: Chronic obstructive pulmonary disease/asthma exacerbation. SECONDARY DIAGNOSES: 1. Hypertension. 2. Diabetes. 3. Depression. STUDIES DONE DURING HOSPITALIZATION: Chest x-ray, read as no active cardiopulmonary disease noted. DISCHARGE MEDICATION REGIMEN: 1. Doxycycline 100 mg by mouth 2 times daily. 2. Metformin 1000 mg by mouth 2 times daily. 3. Glimepiride 4 mg by mouth 2 times daily. 4. Lisinopril 10 mg by mouth daily. 5. Duloxetine 60 mg by mouth daily. 6. Prednisone 60 mg by mouth daily and taper as instructed. 7. Spiriva 1 capsule inhaled daily. 8. Tessalon 100 mg by mouth 3 times daily as needed for cough. 9. Albuterol 1 puff inhaled every 4 hours as needed for shortness of breath or wheezing. HISTORY OF PRESENT ILLNESS AND HOSPITAL SUMMARY: Please see the full history and physical by Dr. Rowdy Bonilla for full details. Briefly, Ms. Mckenzie is a 51-year- old female with a past medical hi story as above, who presented to the hospital with 3 weeks of shortness of breath and wheezing. Her symptoms seemed to have started around the time she was cleaning her house and was exposed to a lot of dust. She had some improvements on outpatient antibiotics and steroids, but just prior to admis say symptoms worsened and she became hypoxic which was noted on admission. The patient was treated with IV steroids, scheduled nebulizer treatments, by the following day, the patient's symptoms impro verónica. Lung exam was completely clear on discharge. However, she did have a persistent cough. During hospitalization her blood sugars were elevated due to the IV steroids. She was restarted on home medications and additionally had some Lantus and Humalog insulin. Hopefully with decrease in he r steroid dose, her blood sugar should not be as high on discharge. For now we will keep on her pre vious home diabetic medications. The patient will be discharged home with prednisone taper, as well as some cough suppressants. She will need a close followup with her PCP, which is scheduled. TIME SPENT: Total time spent on this discharge is 45 minutes. This is a summary of this hospitalization. Please see the full medical record for further details. [id number]/[facility] #: [id number]
--- NOTE | 2017-01-03 19:36 | PN ---
Progress Note - Progress Note Date of Service: 01/03/17 Note: pt called back c/o more purulent sputum production. Started Levaquin 500 mg daily x 7 days total, script sent to [facility] pharmacy
== END 2017-01-02 15:45 | disposition home or self-care (01) | DRG 191 ==
LOC: ED 09:58 → MED 13:17 → OBSVTOIN 01-01 09:00
PROVIDERS: ADMIT Internal Medicine; ATTEND Hospitalist
DX: J44.1 Chronic obstructive pulmonary disease with (acute) exacerbation (principal); J45.901 Unspecified asthma with (acute) exacerbation; E09.65 Drug or chemical induced diabetes mellitus with hyperglycemia; Z68.41 Body mass index [BMI] 40.0-44.9, adult; E87.1 Hypo-osmolality and hyponatremia; E66.9 Obesity, unspecified; F32.9 Major depressive disorder, single episode, unspecified; I10 Essential (primary) hypertension; T38.0X5A Adverse effect of glucocorticoids and synthetic analogues, initial encounter; Y92.239 Unspecified place in hospital as the place of occurrence of the external cause; Z79.84 Long term (current) use of oral hypoglycemic drugs; R09.02 Hypoxemia; Z82.5 Family history of asthma and other chronic lower respiratory diseases; Z87.891 Personal history of nicotine dependence
CPT/HCPCS: 36415; 71020; 80048; 80053; 81003; 81015; 82550; 82553; 82803; 82947; 83036; 83605; 83880; 84484; 85025; 86140; 87040; 87070; 87205; 87502; 94640; 94760; A9270-GY; G0378; J2920; J2930; J7512

== ENCOUNTER 2020-12-30 23:03 | Observation (INO) ==
[2020-12-31 04:32] LABS: ABS Basophils 0.1 10^3/ul (0-0.2); ABS Eosinophils 0.3 10^3/ul (0-0.6); ABS Lymphocytes 2.9 10^3/ul (1.0-4.8); ABS Monocytes 0.5 10^3/ul (0-0.8); Eosinophil % 3.1 %; Hematocrit 45 % (35-47); Hemoglobin 15.1 g/dL (12.0-16.0); Lymphocyte % 29.5 %; Mean Corpuscular HGB Conc 33 g/dL (31-36); Mean Corpuscular Hemoglobin 30 pg (27-31); Mean Corpuscular Volume 89 fL (80-97); Mean Platelet Volume 8.5 fL (7.4-10.4); Nucleated Red Blood Cells % 0.1; Platelet Count 289 10^3/uL (150-450); Red Blood Count 5.11 10^6 /uL (3.70-4.87); Red Cell Distribution Width 14 % (10-15); White Blood Count 9.9 10^3/uL (3.5-10.8)
[2020-12-31 04:47] LABS: Calcium 9.5 mg/dL (8.6-10.3)
[2020-12-31 04:50] LABS: Troponin I 0.01 ng/mL (<0.03)
[2020-12-31] MEDS ORDERED: Azithromycin 500 mg/250 ml NS 500 MG/250 ML BAG IVPB ONE (08:18)
[2020-12-31] MEDS ORDERED: Dextrose 50% Syringe 50 ml 25 GM/50 ML SYRINGE IV PUSH PRN (08:23)
[2020-12-31] MEDS ORDERED: Ondansetron 4 mg VIAL 2 MG/ML 2 ml VIAL IV PRN (08:25)
[2020-12-31 08:39] LABS: Rapid COVID-19 Molecular Undetected (Undetected)
[2020-12-31] MEDS: DULoxetine DR 60 mg CAP PO SCH (11:40)
[2020-12-31] MEDS: NS 0.9% 1000 ml BAG 1,000 ML IV SCH (11:41)
[2020-12-31] MEDS: cefTRIAXone 1 gm/50 mL NS BAG 1 GM/50 ML BAG IVPB SCH (12:35)
[2020-12-31] MEDS: Heparin 5000 UNITS/ML 1 mL VIAL SUBCUT SCH ×2 (16:12→22:08)
[2021-01-01] MEDS: NS 0.9% 1000 ml BAG 1,000 ML IV SCH (01:09)
[2021-01-01] MEDS: Heparin 5000 UNITS/ML 1 mL VIAL SUBCUT SCH ×3 (04:36→21:04)
[2021-01-01 05:42] LABS: ABS Basophils 0.1 10^3/ul (0-0.2); ABS Eosinophils 0.3 10^3/ul (0-0.6); ABS Lymphocytes 2.5 10^3/ul (1.0-4.8); ABS Monocytes 0.4 10^3/ul (0-0.8); ABS Neutrophils 4.3 10^3/ul (1.5-7.7); Eosinophil % 3.8 %; Hematocrit 41 % (35-47); Hemoglobin 13.8 g/dL (12.0-16.0); Lymphocyte % 33.1 %; Mean Corpuscular HGB Conc 34 g/dL (31-36); Mean Corpuscular Hemoglobin 30 pg (27-31); Mean Corpuscular Volume 88 fL (80-97); Mean Platelet Volume 8.3 fL (7.4-10.4); Nucleated Red Blood Cells % 0.2; Platelet Count 239 10^3/uL (150-450); Red Blood Count 4.62 10^6 /uL (3.70-4.87); Red Cell Distribution Width 14 % (10-15); White Blood Count 7.6 10^3/uL (3.5-10.8)
[2021-01-01 06:05] LABS: Calcium 9.2 mg/dL (8.6-10.3); Potassium 4.4 mmol/L (3.5-5.0)
[2021-01-01 11:37] LABS: Urine Appearance Clear; Urine Bilirubin Negative (Negative); Urine Blood Negative (Negative); Urine Color Yellow; Urine Glucose 3+(>=500 mg/dL) (Negative); Urine Ketones Trace (Negative); Urine Nitrite Negative (Negative); Urine Protein Negative (Negative); Urine Specific Gravity 1.023 (1.002-1.030); Urine Urobilinogen Negative (Negative)
[2021-01-01 13:59] LABS: HDL Cholesterol 29.2 mg/dL
[2021-01-01] MEDS ORDERED: Regadenoson 0.4 MG/5 ML SYRINGE ONE (14:08)
[2021-01-01] MEDS: DULoxetine DR 60 mg CAP PO SCH (16:12)
[2021-01-01] MEDS: Aspirin EC 81 mg TAB.EC (enteric coated) PO SCH (16:12)
[2021-01-01] MEDS: cefTRIAXone 1 gm/50 mL NS BAG 1 GM/50 ML BAG IVPB SCH (16:25)
[2021-01-02] MEDS: Heparin 5000 UNITS/ML 1 mL VIAL SUBCUT SCH ×2 (04:40→13:17)
[2021-01-02] MEDS ORDERED: NS 0.9% 1000 ml BAG 1,000 ML IV SCH ×2 (06:00→13:15)
[2021-01-02] MEDS: Aspirin EC 81 mg TAB.EC (enteric coated) PO SCH (07:27)
[2021-01-02] MEDS: DULoxetine DR 60 mg CAP PO SCH (07:28)
[2021-01-02] MEDS ORDERED: Midazolam 5 mg/5 ml VIAL 1 mg/ml 5 ml VIAL (5 mg) ONE (12:23)
[2021-01-02] MEDS ORDERED: nitroGLYCERIN DRIP 25,000 MCG/250 ML BTL ONE (12:23)
[2021-01-02] MEDS ORDERED: VERAPAMIL 2.5 MG/ML 2 ML VIAL ** 5 mg/2 ml ONE (12:23)
[2021-01-02] MEDS ORDERED: Heparin 2 UNITS/ML 1000 mls 3,000 ML IV ONE (12:23)
[2021-01-02] MEDS ORDERED: Heparin 1,000 UNIT/ML 10 ml (10,000 UNITS) CATHLAB/DIALYSIS ONE (12:23)
[2021-01-02] MEDS ORDERED: fentaNYL 100 mcg/2 ml 50 MCG/ML VIAL ONE (12:23)
[2021-01-02] MEDS ORDERED: Lidocaine 1% VIAL 10 MG/ML VIAL ONE (12:23)
[2021-01-02] MEDS ORDERED: Iohexol 350 (CONTRAST) 200 ML MDV IV ONE ×2 (12:24)
[2021-01-02 16:39] VITALS: BP 128/67
== END 2021-01-02 17:05 | disposition home or self-care (01) ==
LOC: MED 23:03 → ED 23:03 → SUATTDRO 12-31 10:28 → MED 12-31 10:43 → MEDTELE 01-01 01:54
PROVIDERS: ADMIT Internal Medicine; ATTEND Internal Medicine